=== PATIENT | male | born 1965 | race Caucasian/White ===

== ENCOUNTER → 2025-08-08 | Outpatient (CLI) | payer MEDICAID, SELFPAY ==
--- NOTE | 2025-08-08 15:00 | XR_ITS ---
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 Images obtained post intravenous injection Isovue 30 cc [id number] 2-D sagittal and coronal reconstructions. Low dose protocols were performed. One or more of the following dose reduction techniques were used; automated exposure control, adjustment of the mA and/or KV according to patient size, use of iterative reconstruction technique. Findings: No thoracic aortic aneurysm dilatation No pulmonary artery emboli on this non-CTA study Heavy calcification left main left ricki descending the circumflex coronary arteries No paratracheal tracheobronchial or bronchopulmonary adenopathy Numerous bilateral pulmonary nodules, at least 20, ranging in size from 2 to 10 mm No pneumonia or pulmonary edema 9 mm low-density anterior right lobe liver lesion No biliary tract dilatation Spleen is not enlarged No pancreatic mass Nodular thickening left adrenal Fany Moderate left hydronephrosis which appears to be secondary to rectosigmoid tumor mass Normal appendix Poorly defined rectosigmoid tumor mass with soft tissue mass consistent with tumor in the presacral region The mass is very poorly defined, with an anterior posterior dimension at least 4.8 cm, mediolateral dimension 2.8 cm, the mass appears to invade the posterior wall of the bladder on the left side, axial image 286 This mass is likely the cause of the left hydronephrosis Moderate osteopenia There is subtle sclerosis of the visualized vertebral bodies including the sacral segments IMPRESSION: Multiple metastatic nodules as above, the largest 10 mm in the right lung 9 mm low-density anterior right lobe liver lesion, recommend MRI abdomen follow-up pre and postcontrast for best assessment of hepatic metastases Moderate left hydronephrosis, which is secondary to apparent rectosigmoid tumor mass in the pelvis, measuring at least 4.8 cm in AP dimension and 2.8 cm in mediolateral dimension, the tumor mass invades the posterior wall of the bladder on the left side axial image 286 MRI pelvis follow-up pre and postcontrast would best stage the rectal tumor Widespread osteoblastic metastatic disease, consider whole body bone scan follow-up
== END | disposition home or self-care (01) ==
PROVIDERS: PCP Family Medicine
DX: R91.8 Other nonspecific abnormal finding of lung field (principal); K76.9 Liver disease, unspecified; N13.30 Unspecified hydronephrosis; N32.89 Other specified disorders of bladder; C79.9 Secondary malignant neoplasm of unspecified site; C20 Malignant neoplasm of rectum
CPT/HCPCS: 71260; 74177; A4649; Q9967